=== PATIENT | male | born 1985 | race Caucasian/White ===

== ENCOUNTER 2020-01-24 00:21 | Emergency (ER) | payer SELFPAY ==
[2020-01-24 00:23] VITALS: BP 124/66; PULSE 64; RESP 20; TEMP 36.8; O2SAT 100
--- NOTE | 2020-01-24 01:35 | ED.WOUNDLAC ---
HPI - Wound/Laceration General Chief Complaint: Wound/Laceration Stated Complaint: laceration Time Seen by Provider: 01/24/20 00:34 History of Present Illness HPI narrative: Stood up and struck his head on a crate today at work. He sustained a small laceration to the top of his head. Minimal pain. No active bleeding. No LOC, weakness, dizziness, confusion. No additioanl injuries. 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 Exam Const: General: healthy appearing, no acute distress and alert Orientation/consciousness: patient oriented x3 HENMT: Other: 2 cm laceration to scalp Eyes: Pupils: Equal, round and reactive pupils present Neck: Neck: normal visual inspection Resp: Effort & Inspection: normal respiratory effort Cardio: Rate: regular rate Rhythm: regular rhythm Skin: Other: see HEENT Neuro: General: patient oriented x3, moves all extremities, no focal motor deficits and CN's II-XI intact bilaterally Speech: normal speech Course Vital Signs Vital signs: Vital Signs Temperature 36.8 C 01/24/20 00:23 Pulse Rate 64 01/24/20 00:23 Respiratory Rate 20 01/24/20 00:23 Blood Pressure 124/66 01/24/20 00:23 Pulse Oximetry 100 01/24/20 00:23 Temperature 36.8 C 01/24/20 00:23 Pulse Rate 64 01/24/20 00:23 Respiratory Rate 20 01/24/20 00:23 Blood Pressure 124/66 01/24/20 00:23 Pulse Oximetry 100 01/24/20 00:23 Procedures Laceration Laceration 1: Site: scalp Size (cm): 2 Description: linear Depth: simple, single layer Local Anesthetic: lidocaine 1% and with epi Amount of anesthesia used (mL): 3 Pre-repair: wound explored and irrigated ====== Skin Level ====== Skin layer closed with: other (chromic gut) Size (cm): 4-0 Number of sutures: 3 Technique: simple, interrupted ====== Subcutaneous Layer ====== ====== Muscle Layer ====== ====== Tendon Layer ====== Discharge Plan Discharge Clinical Impression: Laceration of scalp Qualifiers: Encounter type: initial encounter Qualified Code(s): S01.01XA - Laceration without foreign body of scalp, initial encounter Patient Disposition: Home, Self-Care Condition: Stable Instructions: Laceration (ED), Care For Your Absorbable Stitches (ED) Prescriptions: No Action No Home Medications RF: 0
[2020-01-24 01:54] VITALS: BP 122/84; PULSE 78; RESP 20; O2SAT 100
== END 2020-01-24 02:07 | disposition home or self-care (01) ==
LOC: ANHED 01:50
PROVIDERS: Emergency Provider Emergency Medicine
DX: S01.01XA Laceration without foreign body of scalp, initial encounter (principal); W22.8XXA Striking against or struck by other objects, initial encounter
CPT/HCPCS: 12001; 99282

== ENCOUNTER 2025-04-27 17:44 | Emergency (ER) | payer OTHER, SELFPAY ==
[2025-04-27 17:51] VITALS: BP 125/75; PULSE 80; RESP 20; TEMP 36.6; O2SAT 100
--- OUTSIDE RECORDS SUMMARY | 2025-04-27 17:51 | XMS_ITS ---
Author Organization [facility] Address [address] [place] [address] Phone Care Team Providers Care Machine Operator Picker Name Role Phone Jael Graf PAC Primary Care Pro vider [facility] Status:Enrolled (Active) Start date:09/08/2024 Enrollment date:09/08/2024 Related social drivers of health:Intimate Partner Violence, Social Connections, Tobacco Use, Depression, Stress, Physical Activity, Food Insecurity, Transportation Needs, Housing Stability Continued Care and Services Coordination
--- OUTSIDE RECORDS SUMMARY | 2025-04-27 17:51 | XMS_ITS | Clinical Summary ---
Author Organization [facility] Address [address] [place] [address] Phone Care Team Providers Care Manager Rn Case Name Role Phone Jael Grfaelle PAC Primary Care Pro vider Allergies Active Allergy Reactions Criticality Noted Date Comments [place] Extract Anaphylaxis 12/08/2023 Medications OLANZapine (ZYPREXA) 5 MG Tablet 12/03/19 Active FLUoxetine (PROzac) 20 MG Capsule 12/03/19 24 Active cyanocobalami n (VITAMIN B-12) 1000 MCG/ML SolutionIndic ations:B12 deficiency 1 mL by Intramuscular route once a week. 4 mL 12/22/19 24 Active Additional Information Patient not taking.Reported on 02/02/2024 ferrous sulfate (FeroSul) 325 (65 Fe) MG TabletIndicat ions:Iron deficiency TAKE 1 TABLET BY MOUTH EVERY DAY 30 Tablet 03/30/20 25 Active SYRINGE-NEEDL E, DISP, 3 ML (B-D 3CC LUER-LAKESHA SYR 25GX1) 25G X 1 3 ML MiscIndicatio ns:B12 deficiency USE DIRECTED ONCE WEEKLY 12 Each 03/30/20 25 Active ferrous sulfate 325 (65 Fe) MG TabletIndicat ions:Iron deficiency Take 1 Tablet by mouth daily. 90 Tablet 3 12/15/19 24 025 Discontinued Syringe/Needl e, Disp, (SYRINGE 3CC/23GX1) 23G X 1 3 ML MiscIndicatio ns:B12 deficiency USE DIRECTED 4 Each 12/22/19 24 025 Discontinued Active Problems Problem Noted Date Diagnosed Date Chronic back pain 02/02/2024 Anemia 02/02/2024 Bipolar 1 disorder 02/02/2024 Overview (02/02/2024): PSYCHE follows Smoker 09/02/2022 Encounters Date Type Department Care Team Description 03/29/2025 Refill [facility] [address] [place] [address] So Tilley APRN, PERRY Medication Refill from Last 3 Months Immunizations Immunization Administration Dates Next Due Influenza Vaccine, Quadrivalent, PF 05/15/2022 TDAP Vaccine 06/29/2023,12/30/2016 Family History Medical History Relation Name Comments Hypertension Father No Known Problems Maternal Grandfather No Known Problems Maternal Grandmother Hypertension Mother Stroke Paternal Grandfather Congestive Heart Failure Paternal Grandmother Diabetes Paternal Grandmother Heart Attack Paternal Grandmother Pacemaker Paternal Grandmother No Known Problems Sister Relation Name Status Comments Father Alive Maternal Grandfather Maternal Grandmother Alive Mother Alive Paternal Grandfather Paternal Grandmother Sister Alive Social History Tobacco Use Types Packs/Day Years Used Date Smoking Tobacco: Every Day Cigarettes 0.5 20 Smokeless Tobacco: Former Tobacco Cessation:Ready to Q uit: No; Counseling Given: No Alcohol Use Standard Drinks/Week Comments Never 0 (1 standard drink = 0.6 oz pur e alcohol) [facility] Utilities Answer Date Recorded In the past 12 months has e electric, gas, oil, or water company threatened to shut off services in your home? No 02/02/2024 Social Connection and Isolation Panel Answer Date Recorded In a typical week, how many times do you talk on the phone with family, friends, or neighbors? Once a week 02/02/2024 Frequency of Social Gatherings with Friends and Family Not on file 02/02/2024 Attends Zoroastrian Services Not on file 02/01 Active Member of Clubs or Organizations Not on f ile 02/02/2024 Attends Club or Organization Meetings Not on romario e 02/02/2024 Marital Status Not on file 02/02/2024 AUDIT-C Answer Date Recorded Q1: How often do you have a drink containing alc ohol? Never 02/02/2024 Average Number of Drinks Not on file 024 Frequency of Binge Drinking Not on file 01/10 Overall Financial Resource Strain (CARDIA) Answe r Date Recorded How hard is it for you to pa y for the very basics like food, housing, medical care, and heating? Not very hard 02/02/2024 [facility] Occup[facility] - Occupational Stress Questionnaire Answer Date Recorded Do you feel stress - tense, restless, nervous, or anxious, or unable to sleep at night because your mind is troubled all the time - these days? Very much 02/02/2024 Exercise Vital Sign Answer Date Recorde d On average, how many days pe r week do you engage in moderate to strenuous exercise (like a brisk walk)? 7 days Minutes of Exercise per Session Not on file 02/02/2024 Hunger Vital Sign Answer Date Recorded Within the past 12 months, y ou worried that your food would run out before you got the money to buy more. Never true 02/02/20 24 Ran Out of Food in the Last Year Not on file 02/02/2024 PRAPARE - Transportation Answer Date Re corded In the past 12 months, has l ack of transportation kept you from medical appointments or from getting medications? No 02/02/2024 Lack of Transportation (Non-Medical) Not on file 02/02/2024 Housing Stability Vital Sign Answer Ab e Recorded In the last 12 months, was t here a time when you were not able to pay the mortgage or rent on time? No 02/02/2024 Number of Times Moved in the Last Year Not on fi le 02/02/2024 Homeless in the Last Year Not on file 2023 Sexually Active Control Partners Comments Yes Sex and Gender Information Value Date Recorded Sex Assigned at Not on file Legal Sex Male 8:57 PM CDT Gender Identity Not on file Sexual Orientation Not on file Last Filed Vital Signs Vital Sign Reading Time Taken Comments Blood Pressure 108/72 02/02/2024 3:09 PM CDT Pulse 90 02/02/2024 3:09 PM CDT Temperature 36.4 C (97.5 F) 02/02/2024 3:09 PM CDT Respiratory Rate 12 02/02/2024 3:09 PM CDT Oxygen Saturation 98% 02/02/2024 3:09 PM CDT Inhaled Oxygen Concentration - - Weight 99.8 kg (220 lb) 02/02/2024 3:09 PM CDT Height 172.7 cm (5' 8) 02/02/2024 3:09 PM CDT Body Mass Index 33.45 02/02/2024 3:09 PM CDT Plan of Treatment Health Maintenance Due Date Last Done Comments Hepatitis C Virus (HCV) Screening 1985 Hepatitis B Immunization (1 of 3 - 19+ 3-dose series) 2004 Pneumococcal Immunization Combined (1 of 2 - PCV) 2004 Human Papillomavirus (HPV) Immunization (1 - 3-dose SCDM series) 2012 Influenza Immunization (#1) 2025 05/15/2022 Td Immunization Every 10 Yea rs (Adults With 1 Tdap) 06/29/2033 06/29/2023, 12/30/2016 Respiratory Syncytial Virus (RSV) Immunization (Adult) (1 - 1-dose 75+ series) 2060 Meningococcal Immunization (ACWY) Aged Out No longer eligible based on patient's age to complete this topic Rotavirus Immunization Aged Out No lo nger eligible based on patient's age to complete this topic SARS-COV-2 Immunization Discontinued Insurance MEDICAID [place] Care Teams Manager Rn Case Relationship Specialty Start Date End Date Jael Graf PAC PCP - General Physician Software Development Coordinator 02/02/24
--- OUTSIDE RECORDS SUMMARY | 2025-04-27 17:51 | XMS_ITS | Clinical Summary ---
Author Organization [facility] Address [address] [facility] [place] [address] Care Team Providers Care Engrosser Name Role Phone Cristy Grace SE[employer] PACKAGE HANDLER Primary Care Provider Allergies No known active allergies Medications QUEtiapine (SEROquel) 100 mg tablet Take 100 mg by mouth daily 4 09/21/2018 Active vortioxetine (TRINTELLIX) 20 mg tabletIndication s:major depressive disorder 20 mg daily Active ibuprofen (ADVIL,MOTRIN) 800 mg tablet Take 1 tablet (800 mg total) by mouth every 8 (eight) hours as needed for pain 21 tablet 07/12/2019 Active cyclobenzaprine (FLEXERIL) 10 mg tablet Take 1 tablet (10 mg total) by mouth 3 (three) times a day as needed (Low back pain) 15 tablet 07/12/2019 Active Active Problems No known active problems Immunizations Immunization Administration Dates Next Due Tdap 06/29/2023 Surgical History Surgery Date Site/Laterality Comments NO PAST SURGERIES Medical History Medical History Date Comments Tobacco use Alcohol use Social History Tobacco Use Types Packs/Day Years Used Date Smoking Tobacco: Every Day Smokeless Tobacco: Never Alcohol Use Standard Drinks/Week Comments Yes 0 (1 standard drink = 0.6 oz pur e alcohol) Sex and Gender Information Value Date Recorded Sex Assigned at Not on file Legal Sex Male 6:07 PM SKULL GRINDER Gender Identity Not on file Sexual Orientation Not on file Obstetrics History Last Filed Vital Signs Vital Sign Reading Time Taken Comments Blood Pressure 103/64 06/28/2023 11:45 PM SKULL GRINDER Pulse 62 06/29/2023 12:45 AM SKULL GRINDER Temperature 36.4 C (97.6 F) 06/28/2023 11:42 PM SKULL GRINDER Respiratory Rate 18 06/28/2023 11:42 PM SKULL GRINDER Oxygen Saturation 100% 06/29/2023 12:45 AM SKULL GRINDER Inhaled Oxygen Concentration - - Weight 113.9 kg (251 lb) 02/06/2022 9:56 PM CDT Height 172.7 cm (5' 8) 02/06/2022 9:56 PM CDT Body Mass Index 38.16 02/06/2022 9:56 PM CDT Plan of Treatment Health Maintenance Due Date Last Done Comments Depression Screening 1985 Hepatitis C Screening 1985 Varicella Vaccines (1 of 2 - 13+ 2-dose series) 1998 Hepatitis B Screening 2003 Regular Well Visit/Exam 18-64 2003 Pneumococcal vaccine <65 (1 of 2 - PCV) 2004 HPV Vaccines (1 - 3-dose SCDM series) 2012 Influenza Vaccine (#1) 2025 05/15/2022 DTaP/Tdap/Td Vaccine (3 - Td or Tdap) 06/29/2033, 12/30/2016 Insurance [facility] [place] [address] REJI COLINDRES Care Teams Engrosser Relationship Specialty Start Date End Date Cristy Grace NP [address] [place] [address] [address] [place] [address] PCP - General Nurse Practitioner 09/30/24
[2025-04-27 18:08] LABS: EDSTREPNEGPOS1 Negative (Negative)
[2025-04-27 18:16] LABS: EDCOVIDSCREEN Negative (Negative); EDINFLUASCREEN Negative (Negative); EDINFLUBSCREEN Negative (Negative)
--- NOTE | 2025-04-27 18:21 | ED_ITS ---
HPI - URI/Sore Throat General Chief Complaint: Upper Respiratory Infection Stated Complaint: sore throat, cough Time Seen by Provider: 04/27/25 18:11 Source: patient and RN notes reviewed Mode of arrival: ambulatory Limitations: no limitations History of Present Illness HPI Narrative: Patient presents today with a 2 day history of sore throat, congestion, cough, headache, chills, shortness of breath with exertion. Denies fever. Currently rates his pain 8/10 and has tried cold medicine without improvement. No history of asthma or COPD. Patient used to smoke but is currently on nicotine patches. Significant other with similar symptoms. Related Data Home Medications ?Medication ?Instructions ?Recorded ?Confirmed ?Last Taken ?Type albuterol sulfate 90 mcg/actuation inhalation 04/27/25 Unknown History aerosol inhaler ferrous sulfate 325 mg (65 mg mg 04/27/25 Unknown His tory iron) tablet (FeroSul) nicotine 14 mg/24 hr daily 04/27/25 Unknown History transdermal patch syringe with needle 3 mL 25 gauge 04/27/25 04/27/25 U nknown History x 1 (BD Luer-Tyrese Syringe) Allergies Allergy/AdvReac Type Severity Reaction Status Date / Time No Known Allergies Allergy Verified 04/27/25 18:00 [facility] Social History Social History Occupation/Education: occupation 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 Please see nursing chart for further information. There is no relevant family history pertinent to the presenting complaint Exam Narrative: GENERAL: Mildly ill-appearing, well-nourished, and in no acute distress. HEAD: Normocephalic, atraumatic. EYES: EOMI. No redness or drainage. Conjunctivae normal. ENT: Mucous membranes pink and moist. Nares congested with rhinorrhea. TMs normal bilaterally. Throat normal. Uvula midline. NECK: Normal AROM. Supple. No lymphadenopathy. CHEST: No respiratory distress. Clear to auscultation. HEART: Regular rate and rhythm. No murmur appreciated. EXTREMITIES: Normal range of motion. No edema. SKIN: Warm, dry, no rash. Capillary refill normal. Normal skin turgor. NEURO: No focal deficits. Alert and oriented x3. Gait steady. PSYCH: Normal affect. No signs of depression or anxiety. Course Course Level of Care: Express Care Visit Vital Signs Vital signs: Vital Signs Temperature 98 F 04/27/25 17:51 Pulse Rate 80 04/27/25 17:51 Respiratory Rate 20 04/27/25 17:51 Blood Pressure 125/75 04/27/25 17:51 Pulse Oximetry 100 04/27/25 17:51 Oxygen Delivery Room Air 04/27/25 17:51 Temperature 98 F 04/27/25 17:51 Pulse Rate 80 04/27/25 17:51 Respiratory Rate 20 04/27/25 17:51 Blood Pressure 125/75 04/27/25 17:51 Pulse Oximetry 100 04/27/25 17:51 Oxygen Delivery Room Air 04/27/25 17:51 Reviewed MDM - URI/Sore Throat MDM Narrative Medical decision making narrative: 40-year-old male patient with a 2 day history of sore throat, congestion, cough, headache, mild shortness of breath with exertion. Cold medicine without improvement. Upon exam, patient is mildly ill appearing with nasal congestion, rhinorrhea. Clear lungs upon auscultation. Influenza, COVID, and rapid strep negative. Strep culture pending. Symptoms likely viral in etiology. Discussed [id number] medication use and duration of illness. No prescription medications indicated at this time. Anticipatory guidance given. Differential Diagnosis Differential diagnosis: Likely upper respiratory infection, viral infection, bronchitis, influenza, pharyngitis and other (Strep throat, COVID) Lab Data Attestation: I reviewed the patient's lab results. Labs: Lab Results 04/27/25 04/27/25 Range/Units 18:06 18:14 POC Influenza A Ag Negative (Negative) POC Influenza B Ag Negative (Negative) POC SARS CoV-2 Ag Negative (Negative) POC Grp A Strep Screen Negative (Negative) Critical Care Time Critical Care Time Critical Care Time: No Discharge Plan Discharge Clinical Impression: Upper respiratory infection Qualifiers: URI type: unspecified URI Qualified Code(s): J06.9 - Acute upper respiratory infection, unspecified Patient Disposition: Home Condition: Stable Instructions: Upper Respiratory Infection (DC) Additional Instructions: Your influenza, COVID, and rapid strep swab was negative today at [facility]. You will be notified in a few days if the culture comes back positive for strep, and appropriate antibiotics will be called in for you at that time. Your symptoms are likely due to a viral illness, which is not treated with antibiotics. Viral symptoms can be present for up to 7-10 days. Take Tylenol or ibuprofen for fever or pain. Consider Mucinex during the day and a cough suppressant at night such as Robitussin DM, NyQuil, or Delsym. Rest and stay hydrated. Follow up with your PCP in 7 days if symptoms are not improving. Go to the ER immediately if you have any difficulty breathing or swallowing. Your blood pressure was elevated above 120/80 today at Urgent Care. This puts you above the threshold for follow up. Please schedule a followup visit with your personal physician as soon as possible, for further evaluation and treatment. Even blood pressure exceeding 120/80 may indicate pre-hypertension. Patient Language: Welsh Prescriptions: No Action nicotine 14 mg/24 hr patch 24 hour ferrous sulfate [FeroSul] 325 mg (65 mg iron) tablet (DME) BD Luer-Tyrese Syringe 3 mL 25 gauge x 1 syringe MISCELLANEOUS albuterol sulfate 90 mcg/actuation HFA aerosol inhaler INHALATION Follow-up/Referrals: PHYSICIAN NOT ON STAFF,NONSTAFF [Primary Care Provider] Stand Alone Forms: Work/School Release IP Time of Disposition: 18:25
== END 2025-04-27 18:30 | disposition home or self-care (01) ==
PROVIDERS: Emergency Provider Nurse Practitioner
DX: J06.9 Acute upper respiratory infection, unspecified (principal); Z20.822 Contact with and (suspected) exposure to COVID-19
CPT/HCPCS: 87081; 87426; 87804; 87880; 99203; G0463